=== PATIENT | female | born 1980 | race Two or more races ===

== ENCOUNTER 2025-05-14 09:10 | Day surgery (SDC) | payer MEDICAID, SELFPAY ==
[2025-05-14] VITALS (10 sets, daily range): BP systolic 105–143; BP diastolic 76–94; PULSE 60–86; RESP 10–20; TEMP 36.3–36.4; O2SAT 95–100; BMI 20.4
[2025-05-14] MEDS: RINGERS LACTATED 500 ML 500 ML 20 ML IV (11:34)
[2025-05-14] MEDS: BENZOCAINE 20% (Hurricaine) SPRAY 1 DOSE TOP (11:34)
[2025-05-14] MEDS: fentaNYL CIT INJ 50 mCg/ML AMP 2ML (ASD USE ONLY) IVP (11:36)
[2025-05-14] MEDS: MIDAZOLAM INJ 1 MG/ML VIAL 2 ML (ASD USE ONLY) 2 MG IVP (11:36)
== END 2025-05-14 12:37 | disposition home or self-care (01) ==
PROVIDERS: PCP Family Medicine; Referring Provider Internal Medicine Gastroenterology; Visit Provider Internal Medicine Gastroenterology
PROC: (CPT 43239; principal; 2025-05-14 10:45)
DX: K29.50 Unspecified chronic gastritis without bleeding (principal); K31.89 Other diseases of stomach and duodenum; E88.810 Metabolic syndrome
CPT/HCPCS: 43239; A4649; J1200; J2250; J3010; J7120; A9270

== ENCOUNTER 2025-06-09 07:20 | Day surgery (SDC) | payer MEDICAID, SELFPAY ==
[2025-06-08 12:59] VITALS: BMI 21.4
[2025-06-09] VITALS (10 sets, daily range): BP systolic 101–136; BP diastolic 58–87; PULSE 56–77; RESP 9–19; TEMP 36.1–36.3; O2SAT 95–100; BMI 20.4
[2025-06-09] MEDS: RINGERS LACTATED 1000 ML 1,000 ML 125 ML IV (09:44)
[2025-06-09] MEDS: MIDAZOLAM INJ 1 MG/ML VIAL 2 ML (ASD USE ONLY) 2 MG IVP (09:47)
[2025-06-09] MEDS: fentaNYL CIT INJ 50 mCg/ML AMP 2ML (ASD USE ONLY) IVP (09:47)
== END 2025-06-09 11:00 | disposition home or self-care (01) ==
PROVIDERS: PCP Family Medicine; Referring Provider Internal Medicine Gastroenterology; Visit Provider Internal Medicine Gastroenterology
PROC: 0DJD8ZZ Inspection of Lower Intestinal Tract, Via Natural or Artificial Opening Endoscopic (ICD-10-PCS; CPT 45378; principal; 2025-06-09 09:15)
DX: K52.9 Noninfective gastroenteritis and colitis, unspecified (principal); K64.9 Unspecified hemorrhoids
CPT/HCPCS: 45380; 81025; A4217; A4649; J1200; J2250; J3010; J7120